=== PATIENT | female | born 1975 | race Two or more races ===

== ENCOUNTER 2025-04-04 12:34 | Emergency (ER) | payer OTHER ==
[~2025-04-04] VITALS: Ht 157.5 cm; Wt 72.6 kg
[2025-04-04] MEDS ORDERED: ACETAMINOPHEN 500 MG GEL..CAP PO ONE ×2 (16:45→17:22)
[2025-04-04] MEDS ORDERED: ENALAPRILAT DIHYDRATE 1.25 MG/ML VIAL IV ONE ×2 (16:45→17:22)
[2025-04-04 18:14] LABS: BASO % 0.5 % (0.1-1.2); EOS # 0.06 (0.04-0.54); EOS % 0.7 % (0.7-7.0); LYMPH # 2.36 (1.18-3.74); LYMPH % 28.2 % (19.3-53.1); MEAN PLATELET VOLUME 10.80 fl (9.4-12.4); MONO # 0.50 (0.24-0.82); MONO % 6.0 % (4.7-12.5); NEUT # 5.41 (1.56-6.13); NEUT % 64.5 % (34.0-71.1); RED CELL DISTRIBUTION WIDTH 12.8 % (11.6-14.4)
[2025-04-04 18:49] LABS: D DIMER < 0.19 MG/L
[2025-04-04 18:50] LABS: ALT/SGPT 22.0 U/L (12-78); AST/SGOT 17.0 U/L (15-37); BILIRUBIN TOTAL 0.51 mg/dL (0.3-1.2); BUN CREA RATIO 20.0 (7.0-25.0); CREATININE SERUM 0.6 mg/dL (0.55-1.02); GFR 107.16; GLOBULINA 4.1 G/DL (2.4-3.5); GLUCOSE FASTING 104.0 mg/dL (65-100); OSMOLALITY SERUM 278.0 MOSM/KG (275-295)
[2025-04-04 18:51] LABS: INR 1.0
[2025-04-04 18:59] LABS: URINE APPEARANCE Cloudy; URINE BILIRRUBIN Negative (NEGATIVE); URINE BLOOD Negative; URINE COLOR Yellow; URINE GLUCOSE Negative (NEGATIVE); URINE KETONE Trace (NEGATIVE); URINE LEUKOCYTE Trace; URINE NITRATE Negative; URINE PROTEIN Negative (NEGATIVE); URINE UROBILINOGEN 0.2 E.U./dl
[2025-04-04 19:04] LABS: URINE EPITHELIAL CELLS 60.5 uL (0.0-38.8); URINE RBC 2.8 uL (0.0-20.8); URINE WBC 78.4 uL (0.0-23.2)
[2025-04-04 19:08] LABS: URINE CAST 0.00 uL (0.0-1.40)
== END 2025-04-04 20:50 ==
LOC: ER 12:35
PROVIDERS: General Practice
DX: R20.0 Anesthesia of skin (principal); I10 Essential (primary) hypertension